=== PATIENT | male | born 1945 | race Caucasian/White ===

== ENCOUNTER 2022-05-16 07:40 | Inpatient (IN) | payer OTHER ==
[~2022-05-16] VITALS: Ht 160 cm; Wt 88.5 kg
[~2022-05-16 07:40] MED LIST: ASPI81CH; MULVIT
[2022-05-16 08:17] LABS: BASOPHILS ABSOLUTE AUTO 0.09 K/mm3 (0.00-0.23); BASOPHILS PERCENT AUTO 0 % (0-2); Hematocrit 41.3 % (37.0-53.0); Hemoglobin 13.7 g/dL (13.5-17.5); LYMPHOCYTES ABSOLUTE AUTO 1.36 K/mm3 (0.84-5.20); LYMPHOCYTES PERCENT AUTO 6 % (21-46); MONOCYTES ABSOLUTE AUTO 0.86 K/mm3 (0.16-1.47); MONOCYTES PERCENT AUTO 4 % (4-13); Mean Corpuscular HGB 30.3 pg (26.0-34.0); Mean Corpuscular HGB Conc 33.2 g/dL (31.5-36.5); Mean Corpuscular Volume 91 fL (80-100); Mean Platelet Volume 10.6 fL (9.1-12.4); Platelet Count 408 K/mm3 (150-400); RDW Coefficient Variation 13.5 % (11.7-14.2); RDW Standard Deviation 45.7 fL (35.1-46.3); Red Blood Cell Count 4.52 M/mm3 (4.30-5.90); White Blood Cell Count 22.44 K/mm3 (4.00-11.30)
[2022-05-16 08:20] LABS: Base Excess Venous -6.5 mmol/L; Bicarbonate Venous 18.9 mmol/L (24.0-30.0); PCO2 Venous 42.7 mmHg (38-42); pH Blood Venous 7.28 (7.34-7.37)
[2022-05-16 08:28] LABS: Albumin, Blood 2.5 g/dL (3.4-5.0); Albumin/Globulin Ratio 0.5 (0.8-1.8); Bilirubin, Total 2.4 mg/dL (0.1-1.0); Bun/Creatinine Ratio 20.3 (12.0-20.0); Calcium, Blood 8.4 mg/dL (8.5-10.1); Creatinine, Blood 1.82 mg/dL (0.60-1.20); EOSINOPHILS ABSOLUTE AUTO 0.19 K/mm3 (0.00-0.68); EOSINOPHILS PERCENT AUTO 1 % (0-6); Globulin, Blood 4.8 g/dL (2.2-4.0); IMMATURE GRAN ABSOLUTE AUTO 0.88 K/mm3 (0.00-0.10); IMMATURE GRAN PERCENT AUTO 4 % (0-1); Magnesium, Blood 2.8 mg/dL (1.6-2.4); NEUTROPHILS ABSOLUTE AUTO 19.06 K/mm3 (1.96-9.15); NEUTROPHILS PERCENT AUTO 85 % (41-73); Potassium, Blood 2.8 mmol/L (3.5-5.5); Total Protein, Blood 7.3 g/dL (6.4-8.2)
[2022-05-16 08:40] LABS: Chloride (POC) 100 mmol/L (98-108); Creatinine (POC) 1.9 mg/dL (0.8-1.3); Glucose (ISTAT POC) 146 mg/dL (70-99); Hemoglobin (POC) 12.2 g/dL (13.5-17.5); Potassium (POC) 2.5 mmol/L (3.5-5.5); Sodium (POC) 138 mmol/L (135-148); Total CO2 (POC) 21 mmol/L (21-32)
[2022-05-16 09:02] LABS: Influenza A, PCR NEGATIVE (NEGATIVE); Influenza B, PCR NEGATIVE (NEGATIVE); Resp Syncytial Virus, PCR NEGATIVE (NEGATIVE); SARS-Cov-2 (COVID-19) PCR, MMC NEGATIVE (NEGATIVE)
[2022-05-16 11:02] LABS: International Normalized Ratio 1.33; Prothrombin Time Results 13.7 Sec (9.7-11.5)
[2022-05-16 11:13] LABS: Base Excess Venous -14.5 mmol/L; Bicarbonate Venous 13.8 mmol/L (24.0-30.0); PCO2 Venous 40.1 mmHg (38-42); pH Blood Venous 7.16 (7.34-7.37)
--- NOTE | 2022-05-16 13:00 | NUR ---
Received report from GRANT MANAGER and patient arrived on monitor and 4L O2 via NC and sats >90%. He has 20ga RFA IV with Bicarb at 150 ml/hr and Potassium at 50 ml/hr. He has LAC and has Levophed at 10 mncg/min and vasopressin at 0.4 unit/hr and systolics 120's. He was alert and oriented and able to communicate his needs. He was cool pale diaphoretic. came in briefly. Placed PICC line to [facility] and transferred all infusions to it. Placed 14 Fr coude dos santos per patient request. He had smear of stool on arrival and was cleaned up. ROMAN,but weak.
[2022-05-16 13:49] LABS: Base Excess Venous -2.3 mmol/L; Bicarbonate Venous 22.3 mmol/L (24.0-30.0); PCO2 Venous 43.3 mmHg (38-42); pH Blood Venous 7.34 (7.34-7.37)
[2022-05-16 13:50] LABS: Source, Urine Foley catheter
[2022-05-16 14:05] LABS: Appearance, Urine Hazy (Clear); Bilirubin, Urine Neg (Neg); Blood, Urine 5+ (Neg); Color, Urine Yellow (P-Yellow); Glucose Qualitative, Urine 1+ (Neg); Ketones, Urine Neg (Neg); Leukocyte Esterase, Urine 1+ (Neg); Nitrite, Urine Neg (Neg); Protein, Urine 3+ (Neg); Specific Gravity, Urine 1.015 (1.003-1.022); Urobilinogen, Urine 2+ (Normal)
--- NOTE | 2022-05-16 16:15 | NUR ---
p[atient just returned from liver drain and tolerrtaed well but is painful now. Called and got order for fentanyl. Levophed gtt down to 5 mcg/min and Vasopressin off. Bicarb continues at 150 ml/hr. Liver drain on RUQ and has clear opsites and suction canister. Patiemnt remains cool clammy and pale. patient tolerating liquids.
[2022-05-16 16:28] LABS: Bun/Creatinine Ratio 25.3 (12.0-20.0); Calcium, Blood 7.5 mg/dL (8.5-10.1); Creatinine, Blood 1.62 mg/dL (0.60-1.20); Potassium, Blood 4.2 mmol/L (3.5-5.5)
[2022-05-16 18:47] LABS: Bun/Creatinine Ratio 28.7 (12.0-20.0); Calcium, Blood 7.5 mg/dL (8.5-10.1); Creatinine, Blood 1.36 mg/dL (0.60-1.20); Potassium, Blood 3.6 mmol/L (3.5-5.5)
--- NOTE | 2022-05-16 19:00 | NUR ---
ASSUMED CARE OF PATIENT AT THIS TIME FROM PREVIOUS RN. PATIENT RESTING IN BED, ALL LINES, DRIPS, CORDS, AND CODE STATUS VERIFIED AT BEDSIDE.
[2022-05-16 20:36] LABS: Amorphous Light (0-Heavy); Bacteria Mod /hpf; Hyaline Casts 0-2 /lpf (0-2); Mucus Light (0-Heavy); Squamous Epithelial Cells Few /hpf (Few); Transitional Epithelial Cells Few /hpf (0-Rare)
[2022-05-17 03:59] LABS: Hematocrit 31.1 % (37.0-53.0); Hemoglobin 10.4 g/dL (13.5-17.5); Mean Corpuscular HGB 30.4 pg (26.0-34.0); Mean Corpuscular HGB Conc 33.4 g/dL (31.5-36.5); Mean Corpuscular Volume 91 fL (80-100); Mean Platelet Volume 10.6 fL (9.1-12.4); Platelet Count 297 K/mm3 (150-400); RDW Standard Deviation 46.7 fL (35.1-46.3); Red Blood Cell Count 3.42 M/mm3 (4.30-5.90); White Blood Cell Count 9.82 K/mm3 (4.00-11.30)
[2022-05-17 04:13] LABS: International Normalized Ratio 1.36
[2022-05-17 04:33] LABS: Magnesium, Blood 2.1 mg/dL (1.6-2.4)
[2022-05-17 04:45] LABS: Alanine Aminotransfer (ALT/SGP 812 U/L (12-78); Albumin, Blood 1.7 g/dL (3.4-5.0); Albumin/Globulin Ratio 0.5 (0.8-1.8); Alk Phos 97 U/L (50-136); Anion Gap 9 mmol/L (6-16); Aspartate Aminotrans (AST/SGOT 1103 U/L (12-37); Bilirubin, Total 1.2 mg/dL (0.1-1.0); Blood Urea Nitrogen 35 mg/dL (8-24); Bun/Creatinine Ratio 42.4 (12.0-20.0); CO2, Blood 25 mmol/L (21-32); Calcium, Blood 6.8 mg/dL (8.5-10.1); Chloride, Blood 108 mmol/L (98-108); Creatinine, Blood 0.83 mg/dL (0.60-1.20); Globulin, Blood 3.5 g/dL (2.2-4.0); Glomerular Filtration Rate 92 (60-); Glucose, Blood 228 mg/dL (70-99); Potassium, Blood 3.6 mmol/L (3.5-5.5); Sodium, Blood 142 mmol/L (136-145); Vancomycin, Random 9.4 ug/mL
[2022-05-17 04:46] LABS: Total Protein, Blood 5.2 g/dL (6.4-8.2)
[2022-05-17 04:58] LABS: BAND PERCENT MAN 20 % (0-8); BASOPHILS PERCENT MAN 0 % (0-2); EOSINOPHILS PERCENT MAN 0 % (0-6); LYMPHOCYTES ABSOLUTE MAN 0.19 K/mm3 (0.84-5.20); LYMPHOCYTES PERCENT MAN 2 % (21-46); METAMYELOCYTE ABSOLUTE MAN 0.09 K/mm3 (0.00-0.00); METAMYELOCYTE PERCENT MAN 1 % (0-0); MONOCYTES PERCENT MAN 0 % (4-13); NEUTROPHILS ABSOLUTE MAN 9.52 K/mm3 (1.96-9.15); SEG NEUTROPHILS PERCENT MAN 77 % (41-73); TOTAL CELLS COUNTED 100
--- NOTE | 2022-05-17 06:39 | NUR ---
SHIFT SUMMARY: NEURO: PATIENT SLEPT MOST OF SHIFT. PAIN CONTROLLED BY PRN MEDS PER EMAR. OTHERWISE WNL. CARDIAC: BP SOFT. LEVO ON STANDBY SINCE 2129. HR SR IN 80'S. AFEBRILE. RESP: 3LNC OVERNIGHT FOR APNEA. LUNGS CLEAR DIM. PATIENT TACHYPNIC, STATES THIS IS NORMAL. GI: COMPLAINTS OF ABDOMINAL PAIN, NO BM THIS SHIFT. DISTENDED ABDOMEN. : MCDOWELL IN PLACE DRAINING TO GRAVITY. 800 UOP OVERNIGHT. SKIN: JAUNDICED AND PALE. OTHER: LIVER DRAIN 170 OUTPUT. CURRENTLY SEROUS.
--- NOTE | 2022-05-17 08:00 | NUR ---
Received report from Dione AKINS Patient awake in bed and is alert and able to communicate his needs and denies any current pain. He is on 3L O2 via NC and sats >90%. He has Bilateral forearm IV's that have both been flushed SL. He has PICC line to NAMITA dressing intact and site WNL's and is infusing LR at 75 ml/hr. Patient has 14Fr coude catheter and is draining to gravity light tea colored urine. Very exertionally SOB and recovers well.
--- NOTE | 2022-05-17 09:30 | NUR ---
Patient resting in bed with at bedside. He tolerated fruit 1/2 bowl this am. He has LR at 75 ml/hr and Abx. Browning continues to be patent and draining to gravity in moderate amounts. He remains on 3L O2 via NC and sats >90%.
--- NOTE | 2022-05-17 11:20 | NUR ---
Patient just got bath and has visitor. He is slightly SOB with bath and is doing a little better. He is now PCU status. LR continues at 75 ml/hr. No other changes.;
[2022-05-17 12:47] LABS: Free Thyroxine 1.62 ng/dL (0.70-1.60); Triiodothyronine, Free 1.22 pg/mL (2.18-3.98)
--- NOTE | 2022-05-17 14:00 | NUR ---
Patient sitting up in bed with family. Talked with and wanted to see what was plan for liver drain as not draining anymore, Thet are planning to wait for culture and possiblly pull out tomorrow. Patient is being transferrred via gurney with all belongs and to follow. Called report to Roxie AKINS. Went and gave update to Roxie AKINS
[2022-05-18 04:43] LABS: Hematocrit 32.8 % (37.0-53.0); Hemoglobin 10.6 g/dL (13.5-17.5); Mean Corpuscular HGB 29.7 pg (26.0-34.0); Mean Corpuscular HGB Conc 32.3 g/dL (31.5-36.5); Mean Corpuscular Volume 92 fL (80-100); Mean Platelet Volume 10.8 fL (9.1-12.4); Platelet Count 294 K/mm3 (150-400); RDW Coefficient Variation 14.2 % (11.7-14.2); RDW Standard Deviation 48.5 fL (35.1-46.3); Red Blood Cell Count 3.57 M/mm3 (4.30-5.90); White Blood Cell Count 10.28 K/mm3 (4.00-11.30)
[2022-05-18 05:06] LABS: Albumin, Blood 1.8 g/dL (3.4-5.0); Albumin/Globulin Ratio 0.5 (0.8-1.8); Bilirubin, Total 0.9 mg/dL (0.1-1.0); Bun/Creatinine Ratio 58.2 (12.0-20.0); Calcium, Blood 7.6 mg/dL (8.5-10.1); Creatinine, Blood 0.65 mg/dL (0.60-1.20); Globulin, Blood 3.8 g/dL (2.2-4.0); Potassium, Blood 4.4 mmol/L (3.5-5.5); Total Protein, Blood 5.6 g/dL (6.4-8.2)
--- NOTE | 2022-05-18 05:12 | NUR ---
SHIFT SUMMARY PT ALERT AND ORIENTED X4. AFEBRILE. HR 60-80'S NSR. BP STABLE. ON 2L NC SATS OVER 92%, CANNULA IN MOUTH. C/O RUQ ABDOMINAL PAIN, MEDICATED PER EMAR. ON BEDREST, Q2 TURNS. NAMITA PICC DRAWS BLOOD, LR RUNNING IN AT 75/HR. MCDOWELL IN PLACE DRAINING TO GRAVITY. IN BED SLEEPING WITH CALL ALARM AT SIDE, WILL CONTINUE TO MONITOR UNTIL REPORT GIVEN TO ONCOMING RN.
[2022-05-18 05:27] LABS: BAND PERCENT MAN 17 % (0-8); BASOPHILS PERCENT MAN 0 % (0-2); EOSINOPHILS PERCENT MAN 0 % (0-6); LYMPHOCYTES PERCENT MAN 2 % (21-46); MONOCYTES PERCENT MAN 1 % (4-13); NEUTROPHILS ABSOLUTE MAN 9.97 K/mm3 (1.96-9.15); SEG NEUTROPHILS PERCENT MAN 80 % (41-73); TOTAL CELLS COUNTED 100
[2022-05-18 09:23] LABS: Vancomycin, Trough 16.5 ug/mL (5.0-10.0)
[2022-05-18] MEDS ORDERED: ROSU5 PO (09:44)
[2022-05-18] MEDS ORDERED: METHI10 PO (09:47)
--- NOTE | 2022-05-18 15:20 | NUR ---
PT ARRIVED VIA W/C, ASSISTED INTO BED AND HE POSITIONED COMFORTABLY. CALL RICHARDSON IN REACH AND BED IN LOWEST POSITION. DENIES PAIN/DISCOMFORT, WANTS OR NEEDS. WILL CONTINUE TO MONITOR.
--- NOTE | 2022-05-18 18:31 | NUR ---
PT ARRIVED FROM PCU THIS AFTERNOON, HE WAS ORIENTED TO ROOM AND CALL SYSTEM. NO REPORTS OF PAIN OR N/V, CAME TO BEDSIDE AFTER ARRIVAL. PT WITH NS AT TKO TO [facility] PICC. FLUSHES AND DRAWS. HE IS ALERT AND ORIENTED, PLEASANT AND COOPERATIVE, A LITTLE SHAKEY ON HIS FEET SO HE IS A SBA. NO ACUTE CHANGES, WILL CONTINUE TO MONITOR AND REPORT TO ONCOMING RN
[2022-05-19 05:07] LABS: BASOPHILS ABSOLUTE AUTO 0.01 K/mm3 (0.00-0.23); BASOPHILS PERCENT AUTO 0 % (0-2); EOSINOPHILS PERCENT AUTO 0 % (0-6); Hematocrit 34.4 % (37.0-53.0); IMMATURE GRAN ABSOLUTE AUTO 0.04 K/mm3 (0.00-0.10); IMMATURE GRAN PERCENT AUTO 0 % (0-1); LYMPHOCYTES ABSOLUTE AUTO 0.63 K/mm3 (0.84-5.20); LYMPHOCYTES PERCENT AUTO 6 % (21-46); MONOCYTES ABSOLUTE AUTO 0.52 K/mm3 (0.16-1.47); MONOCYTES PERCENT AUTO 5 % (4-13); Mean Corpuscular HGB 29.4 pg (26.0-34.0); Mean Corpuscular Volume 92 fL (80-100); Mean Platelet Volume 10.9 fL (9.1-12.4); NEUTROPHILS PERCENT AUTO 89 % (41-73); Platelet Count 296 K/mm3 (150-400); RDW Coefficient Variation 14.1 % (11.7-14.2); Red Blood Cell Count 3.74 M/mm3 (4.30-5.90)
--- NOTE | 2022-05-19 05:29 | NUR ---
URINARY CATHETER REMOVED DUE TO LEAKING AT INSERTION SITE AND PATIENT COMPLAINING OF PAIN WHICH SOUNDS MUCH LIKE BLADDER SPASMS. PATIENT HAS URINATED 75 mL SINCE REMOVAL OF CATHETER AT 03:30.
[2022-05-19 05:46] LABS: Albumin, Blood 1.7 g/dL (3.4-5.0); Albumin/Globulin Ratio 0.5 (0.8-1.8); Bilirubin, Total 0.6 mg/dL (0.1-1.0); Bun/Creatinine Ratio 56.4 (12.0-20.0); Calcium, Blood 7.7 mg/dL (8.5-10.1); Creatinine, Blood 0.59 mg/dL (0.60-1.20); Globulin, Blood 3.7 g/dL (2.2-4.0); Potassium, Blood 3.8 mmol/L (3.5-5.5); Total Protein, Blood 5.4 g/dL (6.4-8.2)
--- NOTE | 2022-05-19 06:07 | NUR ---
NO ACUTE EVENTS OVERNIGHT LAST NIGHT WITH THE EXCEPTION OF MCDOWELL CATHETER LEAKING. CATHETER WAS REMOVED AND PATIENT IS VOIDING PER URINAL. HE DOES ENDORSE SOME BURNING WITH URINATION AT THIS TIME. ADVISED CHEL THAT THIS IS NOT UNCOMMON FOLLOWING URINARY CATHETER REMOVAL, AND SHOULD RESOLVE ON ITS OWN IN 24-72 HOURS. I ENCOURAGED HIM TO LET RN KNOW IF BURNING PERSISTS OR GETS WORSE, OR IF HE SHOULD HAVE ANY DIFFICULTY URINATING. PT DOES HAVE KNOWN ELEVATED PSA AND REPORTS THAT HIS STREAM IS SLOW TO START.
[2022-05-19 10:27] LABS: Source, Urine Clean Catch
[2022-05-19 10:35] LABS: Bilirubin, Urine Neg (Neg); Blood, Urine 3+ (Neg); Glucose Qualitative, Urine Neg (Neg); Ketones, Urine Neg (Neg); Leukocyte Esterase, Urine 1+ (Neg); Nitrite, Urine Neg (Neg); Protein, Urine 2+ (Neg); Urobilinogen, Urine NORM (Normal)
[2022-05-19 10:44] LABS: Appearance, Urine Hazy (Clear); Color, Urine Yellow (P-Yellow)
[2022-05-19 10:46] LABS: Bacteria Few /hpf; Squamous Epithelial Cells Rare /hpf (Few); White Blood Cells, Urine 0-2 /hpf (0-5)
--- NOTE | 2022-05-19 16:02 | NUR ---
Pt resting in bed and is A&O. Pt denies pain at this time but appears mildly painful with movement. Pt's spouse Winifred at bedside. Reviewed plan of care and recommendations upon D/C. Pt reports not remembering recommendations made by hospitalist and resident. Offered active listening and made some suggestions. Ended visit to allow Pt to rest. Palliative Care will remain available.
--- NOTE | 2022-05-19 18:24 | NUR ---
SHIFT SUMMARY PT'S BLOOD PRESSURE REMAINED IN THE 150'S - 160'S. AT BEDSIDE FOR MOST OF THE SHIFT. VISITED WITH KALYAN BURTON FROM PALLIATIVE CARE. CONTINUES TO C/O BURNING WITH URINATION SINCE MCDOWELL WAS REMOVED AT 0330 THIS AM. PT IS FORGETFUL, HE WAS NOT ABLE TO RECALL THAT HE NEEDS TO PURSUE OUTPATIENT FOLLOW UP FOR A PERITRACHEAL MASS. PALLIATIVE CARE RECOMMENDING THAT PHYSICIANS REMIND PT TOMORROW DURING ROUNDING. OPS SITE TO RUQ FOR DRAINED LIVER ABSCESS, SITE IS C/D/I. PT FATIGUED MOST OF SHIFT, RN ENCOURAGED UNINTERRUPTED REST.
--- NOTE | 2022-05-19 21:07 | NUR ---
2035 PT SITTING ON EDGE OF BED, REPORTS SOB THAT INCREASES WITH EXERTION, IS ON 3L NC O2 HUMIDIFIED AT 93%. PT DECLINES TO WEAR SCD'S FOR NOW. NO OTHER APPARENT SIGNS OF DISTRESS. CALL LIGHT IS IN REACH. 2107 BS IS 124
--- NOTE | 2022-05-20 01:08 | NUR ---
05/19/22 2200 PT LYING IN BED, AWAKE, NO APPARENT SIGNS OF DISTRESS. CALL LIGHT IS IN REACH.
--- NOTE | 2022-05-20 01:09 | NUR ---
0000 PT LYING IN BED, EYES CLOSED, APPEARS TO BE RESTING. BREATHING IS EVEN, UNLABORED. NO APPARENT SIGNS OF DISTRESS. CALL LIGHT IS IN REACH.
--- NOTE | 2022-05-20 04:41 | NUR ---
PT LYING IN BED, EYES CLOSED, APPEARS TO BE RESTING. BREATHING IS EVEN, UNLABORED.NO APPARENT SIGNS OF DISTRESS. CALL LIGHT IS IN REACH.
--- NOTE | 2022-05-20 04:41 | NUR ---
0200 PT LYING IN BED, EYES CLOSED, APPEARS TO BE RESTING. WAKES EASILY TO VERBAL STIMULI. NO APPARENT SIGNS OF DISTRESS. CALL LIGHT IS IN REACH.
--- NOTE | 2022-05-20 04:42 | NUR ---
PT IS AAO X 4, REPORTS SOB THAT INCREASES WITH EXERTION, ON 3L NC O2 HUMIFIED AT 89%. BS WAS 124
[2022-05-20 06:16] LABS: BASOPHILS ABSOLUTE AUTO 0.01 K/mm3 (0.00-0.23); BASOPHILS PERCENT AUTO 0 % (0-2); EOSINOPHILS PERCENT AUTO 0 % (0-6); Hematocrit 35.4 % (37.0-53.0); Hemoglobin 11.4 g/dL (13.5-17.5); IMMATURE GRAN ABSOLUTE AUTO 0.06 K/mm3 (0.00-0.10); IMMATURE GRAN PERCENT AUTO 1 % (0-1); LYMPHOCYTES ABSOLUTE AUTO 0.98 K/mm3 (0.84-5.20); LYMPHOCYTES PERCENT AUTO 8 % (21-46); MONOCYTES ABSOLUTE AUTO 0.68 K/mm3 (0.16-1.47); MONOCYTES PERCENT AUTO 6 % (4-13); Mean Corpuscular HGB 29.8 pg (26.0-34.0); Mean Corpuscular HGB Conc 32.2 g/dL (31.5-36.5); Mean Corpuscular Volume 92 fL (80-100); Mean Platelet Volume 11.1 fL (9.1-12.4); NEUTROPHILS ABSOLUTE AUTO 10.34 K/mm3 (1.96-9.15); NEUTROPHILS PERCENT AUTO 86 % (41-73); Platelet Count 281 K/mm3 (150-400); RDW Coefficient Variation 13.9 % (11.7-14.2); RDW Standard Deviation 47.4 fL (35.1-46.3); Red Blood Cell Count 3.83 M/mm3 (4.30-5.90); White Blood Cell Count 12.07 K/mm3 (4.00-11.30)
[2022-05-20 06:46] LABS: Bun/Creatinine Ratio 33.6 (12.0-20.0); Calcium, Blood 7.2 mg/dL (8.5-10.1); Creatinine, Blood 0.57 mg/dL (0.60-1.20); Potassium, Blood 3.3 mmol/L (3.5-5.5)
[2022-05-20] MEDS ORDERED: ALBU2.5V5 INH (12:34)
[2022-05-20] MEDS ORDERED: FLUTICASONE-SA1 EAC1 INH (12:35)
[2022-05-20] MEDS ORDERED: LEVO750 PO (12:35)
[2022-05-20] MEDS ORDERED: METR500 PO (12:36)
[2022-05-20] MEDS ORDERED: VISBIOME 112.51 EACH PO (12:36)
--- NOTE | 2022-05-20 13:42 | NUR ---
SUMMARY/DISCHARGE PT DISCHARGED TO HOME, PT AND SPOUSE VERBALIZED UNDERSTANDING OF DISCHARGE INSTRUCTIONS REGARDING MEDS AND FOLLOW UP, PT TAKEN OUT SAFELY VIA WHEELCHAIR
== END 2022-05-20 13:39 | disposition home health service (06) | DRG 871 ==
LOC: ER 07:40 → ICUW 10:52 → MEDS 10:52 → ICUW 12:08 → PCU 05-17 14:45 → MEDS 05-18 15:14
PROVIDERS: Family Medicine Adult Medicine; Internal Medicine; Nurse Practitioner Acute Care; Student in an Organized Health Care Education/Training Program; ADMIT Internal Medicine
PROC: 3E033XZ Introduction of Vasopressor into Peripheral Vein, Percutaneous Approach (ICD-10-PCS; 2022-05-16)
PROC: 3E03329 Introduction of Other Anti-infective into Peripheral Vein, Percutaneous Approach (ICD-10-PCS; 2022-05-16)
PROC: 0F9130Z Drainage of Right Lobe Liver with Drainage Device, Percutaneous Approach (ICD-10-PCS; 2022-05-16)
PROC: 02HV33Z Insertion of Infusion Device into Superior Vena Cava, Percutaneous Approach (ICD-10-PCS; principal; 2022-05-17)
DX: A41.9 Sepsis, unspecified organism (principal); K75.0 Abscess of liver; R65.21 Severe sepsis with septic shock; N17.9 Acute kidney failure, unspecified; E87.20 Acidosis, unspecified; R39.198 Other difficulties with micturition; Z66 Do not resuscitate; Z20.822 Contact with and (suspected) exposure to COVID-19; H44.9 Unspecified disorder of globe; R03.0 Elevated blood-pressure reading, without diagnosis of hypertension; E05.90 Thyrotoxicosis, unspecified without thyrotoxic crisis or storm; R74.01 Elevation of levels of liver transaminase levels; E87.6 Hypokalemia; R31.9 Hematuria, unspecified; B37.9 Candidiasis, unspecified; Z90.49 Acquired absence of other specified parts of digestive tract; R79.89 Other specified abnormal findings of blood chemistry; E86.0 Dehydration; E03.9 Hypothyroidism, unspecified; E83.51 Hypocalcemia
CPT/HCPCS: 0241U; 36415; 36569; 51703; 71045; 74177; 75989; 76705; 80047; 80048; 80053; 80202; 81001; 82248; 82803; 82947; 83036; 83605; 83735; 83880; 84145; 84153; 84439; 84443; 84481; 84484; 85014; 85025; 85610; 85730; 87040; 87070; 87075; 87086; 87205; 93005; 93010; 94640; 94644; 94664; 94760; 94761; 94762; 97110; 97112; 97116; 97161; A9270; C1751; J0295; J0610; J0692; J1650; J2543; J2930; J3010; J3370; J3480; J7030; J7050; J7060; J7120; Q9967

== ENCOUNTER 2024-09-25 09:42 | Emergency (ER) | payer OTHER ==
[~2024-09-25] VITALS: Ht 157.5 cm; Wt 77.1 kg
[~2024-09-25 09:42] MED LIST changes: +ALBU2.5V5 INH; +FLUTICASONE-SA1 EAC1 INH; +LEVO750 PO; +METHI10 PO; +METR500 PO; +ROSU5 PO; +VISBIOME 112.51 EACH PO
[2024-09-25] MEDS ORDERED: Ipratropium/Albuterol SulF 2.5-0.5MG/3 ML Amp INH ONE (11:30)
[2024-09-25] MEDS ORDERED: PredniSONE 20 MG Tab PO ONE (11:30)
[2024-09-25] MEDS ORDERED: Prednisone20 MG PO (12:16)
[2024-09-25] MEDS ORDERED: Zithromax250 MG PO (12:16)
[2024-09-25 12:45] VITALS: BP 134/69
== END 2024-09-25 13:08 | disposition home or self-care (01) ==
LOC: ER 09:42
DX: J44.1 Chronic obstructive pulmonary disease with (acute) exacerbation (principal); E78.5 Hyperlipidemia, unspecified; E03.9 Hypothyroidism, unspecified; Z87.891 Personal history of nicotine dependence; Z79.51 Long term (current) use of inhaled steroids
CPT/HCPCS: 71045; 93005; 93010; 94640; 94664; 99285-25; J7512